=== PATIENT | male | born 1990 | race Caucasian/White ===

== ENCOUNTER 2024-03-26 16:26 | Inpatient (IN) ==
[2024-03-26 16:55] LABS: ABS Lymphocytes 0.6 10^3/uL (1.0-4.8); ABS Monocytes 0.6 10^3/uL (0.0-1.1); ABS Neutrophils 3.7 10^3/uL (1.5-7.6); ABS Nucleated RBC 0.01 10^3/ul; Eosinophil % 0.2 %; Hematocrit 43.9 % (38-53); Hemoglobin 15.1 g/dL (13.2-16.3); Lymphocyte % 12.9 %; Mean Corpuscular Hgb Conc 34.3 g/dL (31-36); Mean Corpuscular Volume 84.4 fL (80-97); Mean Platelet Volume 8.4 fL (7.5-11.2); Nucleated Red Blood Cells % 0.2 %/100WBC (0.0-0.8); Platelet Count 169 10^3/uL (150-450); Red Blood Count 5.21 10^6/uL (4.06-5.63); Red Cell Distribution Width 13.7 % (12-17); White Blood Count 4.9 10^3/uL (3.6-10.2)
[2024-03-26 17:28] LABS: INR 1.14 (0.83-1.13)
[2024-03-26 17:42] LABS: Albumin 4.5 g/dL (3.2-5.2); Albumin/Globulin Ratio 1.4 (1-3); Calcium 9.2 mg/dL (8.6-10.3); Creatinine, Serum 1.05 mg/dL (0.67-1.17); Globulin 3.2 g/dL (2-4); Potassium 3.9 mmol/L (3.5-5.0); Total Bilirubin 0.9 mg/dL (0.2-1.0); Total Protein 7.7 g/dL (6.4-8.9); eGFR CKD-EPI 95.5 (>60)
[2024-03-26 18:27] LABS: High Sensitivity Troponin 1 Hr 16271 pg/mL (<20)
[2024-03-26] MEDS: Heparin 5000 UNITS/ML 1 mL VIAL IV SCH (19:09)
[2024-03-26] MEDS: Heparin DRIP 25,000 UNITS BAG 25,000 UNITS/250 ML BAG IV SCH (19:10)
[2024-03-26 19:16] LABS: ABS Lymphocytes 0.9 10^3/uL (1.0-4.8); ABS Monocytes 0.5 10^3/uL (0.0-1.1); ABS Nucleated RBC 0.01 10^3/ul; Eosinophil % 0.3 %; Hematocrit 42.7 % (38-53); Hemoglobin 14.6 g/dL (13.2-16.3); Lymphocyte % 19.3 %; Mean Corpuscular Hemoglobin 28.9 pg (27-33); Mean Corpuscular Hgb Conc 34.2 g/dL (31-36); Mean Corpuscular Volume 84.5 fL (80-97); Mean Platelet Volume 8.1 fL (7.5-11.2); Nucleated Red Blood Cells % 0.3 %/100WBC (0.0-0.8); Platelet Count 162 10^3/uL (150-450); Red Blood Count 5.05 10^6/uL (4.06-5.63); Red Cell Distribution Width 13.7 % (12-17); White Blood Count 4.5 10^3/uL (3.6-10.2)
[2024-03-26] MEDS ORDERED: Lactated Ringers 1000 ml BAG 1,000 ML IV SCH (20:00)
[2024-03-26 20:03] LABS: Creatinine, Serum 1.09 mg/dL (0.67-1.17); eGFR CKD-EPI 91.3 (>60)
[2024-03-26] MEDS: KCL 10 MEQ/50 ML IVPREMIX 10 MEQ/50 ML BAG IV ONE (20:20)
[2024-03-26] MEDS: Lactated Ringers 1000 ml BAG 1,000 ML IV SCH ×2 (21:11→23:29)
[2024-03-26 22:12] LABS: Magnesium 2.2 mg/dL (1.9-2.7); Phosphorus 2.9 mg/dL (2.5-5.0)
[2024-03-26 23:28] LABS: RBC Parasite Smear No Parasites Seen (No Parasite)
[2024-03-26 23:56] LABS: Erythrocyte Sed Rate 18 mm/Hr (0-14)
[2024-03-26] MEDS: DOXYcycline 100 MG in NS 0.9% 250 ml 250 ML IVPB SCH (23:57)
[2024-03-27 05:03] LABS: Hemoglobin 13.3 g/dL (13.2-16.3); Mean Corpuscular Hemoglobin 29.1 pg (27-33); Mean Corpuscular Hgb Conc 34.2 g/dL (31-36); Mean Corpuscular Volume 85.2 fL (80-97); Mean Platelet Volume 8.8 fL (7.5-11.2); Platelet Count 135 10^3/uL (150-450); Red Blood Count 4.57 10^6/uL (4.06-5.63); White Blood Count 4.6 10^3/uL (3.6-10.2)
[2024-03-27] MEDS: Ondansetron 4 mg VIAL 2 MG/ML 2 ml VIAL IV PRN (05:11)
[2024-03-27 05:19] LABS: ABS Lymphocytes 1.6 10^3/uL (1.0-4.8); ABS Monocytes 0.7 10^3/uL (0.0-1.1); ABS Neutrophils 2.1 10^3/uL (1.5-7.6); ABS Nucleated RBC 0.01 10^3/ul; Eosinophil % 1.1 %; Lymphocyte % 35.8 %; Nucleated Red Blood Cells % 0.2 %/100WBC (0.0-0.8)
[2024-03-27 05:20] LABS: RBC Morphology Normal (Normal)
[2024-03-27] MEDS: Droperidol 5 MG/2 ML 2 ML VIAL IV ONE (05:27)
[2024-03-27] MEDS: Sulfur Hexaflouride MICROSPHR 25 MG VIAL IV ONE (08:49)
[2024-03-27] MEDS: NS 0.9% 1000 ml BAG 1,000 ML IV SCH (09:03)
[2024-03-27 09:46] LABS: Cholesterol 176 mg/dL; HDL Cholesterol 34.7 mg/dL; LDL Cholesterol 104 mg/dL; Triglycerides 186 mg/dL
[2024-03-27 09:50] LABS: CRP High Sensitivity > 80.00 mg/L (<2.00)
[2024-03-27] MEDS ORDERED: VERAPAMIL 2.5 MG/ML 2 ML VIAL ** 5 mg/2 ml ONE (10:49)
[2024-03-27] MEDS ORDERED: Heparin 1,000 UNIT/ML 10 ml (10,000 UNITS) CATHLAB/DIALYSIS ONE (10:49)
[2024-03-27] MEDS ORDERED: Heparin 2 UNITS/ML 1000 mls 2,000 ML IV ONE (10:50)
[2024-03-27] MEDS ORDERED: nitroGLYCERIN DRIP 25,000 MCG/250 ML BTL ONE (10:50)
[2024-03-27] MEDS ORDERED: Lidocaine 1% MPF 5 ML VIAL ONE (10:50)
[2024-03-27] MEDS ORDERED: Iohexol 350 (CONTRAST) 200 ML MDV IV ONE (10:50)
[2024-03-27] MEDS: fentaNYL 100 mcg/2 ml 50 MCG/ML VIAL IV SLOW PU ONE (10:53)
[2024-03-27] MEDS: Midazolam 10 mg/10 ml VIAL 1 mg/ml 10 ml VIAL (10 mg) IV SLOW PU ONE (10:53)
[2024-03-27] MEDS ORDERED: Midazolam 5 mg/5 ml VIAL 1 mg/ml 5 ml VIAL (5 mg) ONE (11:03)
[2024-03-27] MEDS ORDERED: fentaNYL 100 mcg/2 ml 50 MCG/ML VIAL ONE (11:03)
[2024-03-27 11:13] LABS: High Sensitivity Troponin 1 Hr 9578 pg/mL (<20)
[2024-03-27] MEDS: DOXYcycline 100 MG in NS 0.9% 250 ml 250 ML IVPB SCH (15:15)
[2024-03-28 08:14] LABS: ABS Eosinophils 0.1 10^3/uL (0.0-0.5); ABS Lymphocytes 1.2 10^3/uL (1.0-4.8); ABS Monocytes 0.5 10^3/uL (0.0-1.1); ABS Neutrophils 2.4 10^3/uL (1.5-7.6); ABS Nucleated RBC 0.02 10^3/ul; Eosinophil % 1.7 %; Hematocrit 41.2 % (38-53); Lymphocyte % 28.5 %; Mean Corpuscular Hemoglobin 29.1 pg (27-33); Mean Corpuscular Volume 85.6 fL (80-97); Mean Platelet Volume 8.5 fL (7.5-11.2); Nucleated Red Blood Cells % 0.4 %/100WBC (0.0-0.8); Platelet Count 159 10^3/uL (150-450); Red Blood Count 4.82 10^6/uL (4.06-5.63); White Blood Count 4.3 10^3/uL (3.6-10.2)
[2024-03-28 09:32] LABS: Albumin 3.8 g/dL (3.2-5.2); Albumin/Globulin Ratio 1.4 (1-3); C Reactive Protein 61.75 mg/L (<8.01); Calcium 8.8 mg/dL (8.6-10.3); Creatinine, Serum 0.81 mg/dL (0.67-1.17); Globulin 2.8 g/dL (2-4); Magnesium 2.3 mg/dL (1.9-2.7); Potassium 4.1 mmol/L (3.5-5.0); Total Bilirubin 0.5 mg/dL (0.2-1.0); Total Protein 6.6 g/dL (6.4-8.9); eGFR CKD-EPI 118.7 (>60)
[2024-03-28 09:46] LABS: Erythrocyte Sed Rate 25 mm/Hr (0-14)
[2024-03-28 13:42] VITALS: BP 118/66
[2024-03-28 14:43] LABS: Cytomegalovirus IgG Antibody Negative (Negative); EBV Capsid Ag IgG Ab Positive (Negative); EBV Capsid Ag IgM Ab Negative (Negative); Epstein-Barr Nuclear Antigen Positive (Negative)
[2024-03-29 14:16] LABS: Anaplasma phagocytophilum Negative (Negative); B. miyamotoi PCR, B Negative (Negative); Babesia divergens/MO-1 Negative (Negative); Babesia ducani Negative (Negative); Ehrlichia chaffeensis Negative (Negative); Ehrlichia ewingii/canis Negative (Negative); Ehrlichia muris eauclairensis Negative (Negative)
== END 2024-03-28 16:45 | disposition home or self-care (01) | DRG 280 ==
LOC: ED 16:26 → EDHOLD 19:37 → MEDTELE 03-27 08:45
PROVIDERS: ADMIT Internal Medicine; ATTEND Internal Medicine